=== PATIENT | male | born 1930 | race Caucasian/White ===

== ENCOUNTER 2016-11-21 16:51 | Emergency (ER) | payer MEDICARE ==
[~2016-11-21] VITALS: Ht 175.3 cm; Wt 60.9 kg
[2016-11-21] MEDS ORDERED: LEVO25TA9 PO (17:17)
[2016-11-21] MEDS ORDERED: RANI150T7 PO (17:17)
[2016-11-21] MEDS ORDERED: [UNRECOGNIZED DRUG - CODE] PO (17:17)
[2016-11-21] MEDS ORDERED: TAMS0.4C32 PO (17:17)
[2016-11-21] MEDS ORDERED: MELA3 PO (17:17)
[2016-11-21] MEDS ORDERED: TORS20 PO (17:17)
[2016-11-21] MEDS ORDERED: KDUR20 PO (17:17)
[2016-11-21] MEDS ORDERED: CITA20TA9 PO (17:17)
[2016-11-21] MEDS ORDERED: DIGO125T PO (17:17)
[2016-11-21] MEDS ORDERED: BISA5TAB12 PO (17:17)
[2016-11-21] MEDS ORDERED: ALLO100T PO (17:17)
[2016-11-21] MEDS ORDERED: SIMV-260 PO (17:17)
[2016-11-21] MEDS ORDERED: VITAD1000 PO (17:17)
[2016-11-21] MEDS ORDERED: APIX2.5T PO (17:17)
[2016-11-21 20:38] VITALS: BP 116/75
== END 2016-11-21 20:52 | disposition home or self-care (01) ==
LOC: EMS 16:53
DX: M79.89 Other specified soft tissue disorders (principal); M79.661 Pain in right lower leg; K21.9 Gastro-esophageal reflux disease without esophagitis; E03.9 Hypothyroidism, unspecified; E78.00 Pure hypercholesterolemia, unspecified; I48.91 Unspecified atrial fibrillation; Z88.8 Allergy status to other drugs, medicaments and biological substances
CPT/HCPCS: 93971; 99284

== ENCOUNTER → 2017-06-23 | Outpatient (CLI) | payer MEDICARE ==
[~2017-06-23] MED LIST: ALLO100T PO; APIX2.5T PO; BISA5TAB12 PO; CITA20TA9 PO; DIGO-44 PO; KDUR20 PO; LEVO25TA9 PO; MELA3TAB66 PO; RANI150T7 PO; SIMV-260 PO; TAMS0.4C32 PO; TORS20 PO; VITAD1000 PO; [UNRECOGNIZED DRUG - CODE] PO
[2017-06-23 16:15] LABS: CREATININE 1.93 mg/dL (0.60-1.30)
== END | disposition home or self-care (01) ==
LOC: LABPV 13:52
PROVIDERS: ATTEND Pain Medicine Interventional Pain Medicine
DX: M47.817 Spondylosis without myelopathy or radiculopathy, lumbosacral region (principal)
CPT/HCPCS: 82565; 84520

== ENCOUNTER → 2017-06-26 | Outpatient (CLI) | payer MEDICARE ==
[~2017-06-26] MED LIST changes: +GADOBUTROL 1 MMOL/ML 10 ML VIAL IVP ONE
== END | disposition home or self-care (01) ==
LOC: RADMN 09:34
PROVIDERS: ATTEND Pain Medicine Interventional Pain Medicine
DX: M41.86 Other forms of scoliosis, lumbar region (principal); M48.061 Spinal stenosis, lumbar region without neurogenic claudication; M48.56XA Collapsed vertebra, not elsewhere classified, lumbar region, initial encounter for fracture; M47.896 Other spondylosis, lumbar region; Z98.890 Other specified postprocedural states
CPT/HCPCS: 72158; A9585

== ENCOUNTER → 2019-01-28 | Outpatient (CLI) | payer MEDICARE ==
[~2019-01-28] MED LIST changes: +BISA-151 PO; -BISA5TAB12 PO; +CHOL100018 PO; +CITA-106 PO; -CITA20TA9 PO; -DIGO-44 PO; +DIGO125T84 PO; -GADOBUTROL 1 MMOL/ML 10 ML VIAL IVP ONE; +TAMS-13 PO; -TAMS0.4C32 PO; -VITAD1000 PO
== END | disposition home or self-care (01) ==
LOC: RADPV 14:15
PROVIDERS: ATTEND Specialist
DX: M85.88 Other specified disorders of bone density and structure, other site (principal); M47.814 Spondylosis without myelopathy or radiculopathy, thoracic region; M46.04 Spinal enthesopathy, thoracic region; M47.816 Spondylosis without myelopathy or radiculopathy, lumbar region; M43.16 Spondylolisthesis, lumbar region; M51.37 Other intervertebral disc degeneration, lumbosacral region; M47.812 Spondylosis without myelopathy or radiculopathy, cervical region; M50.322 Other cervical disc degeneration at C5-C6 level; Z98.890 Other specified postprocedural states
CPT/HCPCS: 72040; 72070; 72100